=== PATIENT | female | born 2000 | race Caucasian/White ===

== ENCOUNTER 2024-09-24 18:10 | Emergency (ER) | payer SELFPAY ==
[2024-09-24 18:13] VITALS: BP 160/100
--- NOTE | 2024-09-24 18:13 | ED.GENMED ---
ED Provider Triage
-
Patient seen by provider in Triage?: Seen in Triage
Attestation: A medical screening examination has been initiated by a qualified medical provider. Based on the assessment performed at this time, it has been determined that an emergent medical condition may exist and the patient has been informed
that further medical evaluation and possible additional diagnostic testing may be needed.
HPI: 24yoF here with R lower dental pain and foul taste x 3 days. Hx of impacted wisdom teeth. Worried about an infection. Dental insurance starts in October.
GENERAL: Alert , in no apparent distress
EYE: No visual abnormalities.
NECK: Trachea midline
ENT: No visible abnormalities.
LUNGS: No acute respiratory distress
NEUROLOGICAL: Alert and oriented
SKIN: Skin intact. No visible changes.
MUSCULOSKELETAL: Moving extremities normally
PSYCH: Normal and appropriate interaction.
This is a medical evaluation conducted in person to initiate diagnostic evaluation and provide initial therapeutics. Please see further documentation by the treating clinician.
History of Present Illness
General
Chief Complaint: Dental Problem
Source: patient
Exam Limitations: none
Time Seen by Provider: 09/24/24 18:21
History of Present Illness
History of Present Illness:
24yoF with no significant past medical history presenting for evaluation of right lower dental pain x 3 days. Patient has a history of impacted wisdom teeth. She is normally able to manage her pain with as needed ibuprofen. Her pain has been
worsening over the past 3 days. She is taking ibuprofen and aspirin without much relief. She denies any dysphagia or fevers. Patient is scheduled to receive dental insurance next month.
Phy Exam
General Physical Exam
General Presentation: well appearing and no apparent distress
General age: appears stated age
General Skin: warm and dry
General Habitus: normal
General Mental: alert
ENT Exam
ENT Exam: pharynx normal (+Tenderness to R lower wisdom tooth. No periapical abscess. No facial swelling. Normal phonation. Tolerating oral secretions. No elevation of floor of mouth. ) and normocephalic
Pulmonary Exam
Pulmonary Exam: no respiratory distress
Neurological Exam
Neurological Exam: alert
Cristina Coma Scale
Eye Opening: Spontaneous
Verbal Response: Oriented
Motor Response: Obeys Commands
GCS Total Score: 15
Skin Exam
Skin Exam: normal color and warm/dry
Psychiatric Exam
Psychiatric Exam: normal mood/affect
Course
Vital Signs
Initial and Last Documented VS:
Initial Vital Signs
Temp Pulse Resp BP Pulse Ox
98.3 F 102 20 160/100 100
09/24/24 18:13 09/24/24 18:13 09/24/24 18:13 09/24/24 18:13 09/24/24 18:13
Last Documented Vital Signs
Temp Pulse Resp BP Pulse Ox
98.3 F 102 20 160/100 100
09/24/24 18:13 09/24/24 18:13 09/24/24 18:13 09/24/24 18:13 09/24/24 18:13
MDM/Problems Addressed
Differential Diagnosis Includes:
24yoF here with R lower dental pain x 3 days. Hx of impacted wisdom teeth. She is afebrile and well-appearing. There is tenderness to the right lower wisdom tooth on exam. No periapical abscess. No signs of facial cellulitis or Murtaza's angina.
Patient started on a course of clindamycin (PCN allergy). Supportive care discussed. Patient is set to receive dental insurance next month. A list of low-cost dental clinics provided to patient. Stressed importance of outpatient dental f/u. ED
return precautions discussed. She expressed understanding and is agreeable with plan. She was discharged in stable condition.
*Critical Care Note
Total Time (30-74mins, 75-104mins- exclusive of procedures): Not Applicable
ED Attending Note
-
Portions of this chart may have been created with voice recognition software.� Occasional wrong word or��sound alike� substitutions may have occurred due to the inherent limitations of voice recognition software.
Discharge Plan
Departure
Patient Disposition: Home (Routine Discharge)
Date of Disposition: 09/24/24
Time of Disposition: 18:23
Patient with high blood pressure during this ER visit?: Yes
Discharge Problem:
Dentalgia
Instructions: Dental Pain (DC)
Prescriptions:
New
clindamycin HCl 300 mg capsule
300 mg PO Q6H 7 Days Qty: 28 0RF
Referrals:
Imani Saucedo PA-C [Emergency Midlevel Provider] -
Rosemary Watts DDS [Active] -
Activity Restrictions/Additional Instructions:
Take antibiotics as prescribed. Take Tylenol 650mg and ibuprofen 600mg every 6 hours as needed for pain.
Please follow-up with a dentist. Return to the ER with any worsening symptoms or fevers.
Reduced-Fee Dental Clinics
[facility]: [phone] call for appt. No walk ins
[facility]:
[facility]: [phone]
[facility] [phone]
[facility]: . No walk ins
[facility]: [phone]
[facility]: [phone]
[facility]: 1-
[facility]: [phone]
[facility]: [phone]
[facility] Sliding scale, Free for uninsured
[facility]: [phone]
[facility] ex [phone] [facility] [place] [address]
[facility]:
[facility]:
Interventions
Interventions:
*Risk Screen - Suicide Last Done: 09/24/24 18:13
*General Assessment Last Done: 09/24/24 18:28
*Neglect/Abuse Screening Last Done: 09/24/24 18:13
ED- Fall Risk Assessment Last Done: 09/24/24 18:28
*ED COVID-19 Vaccine History Last Done: 09/24/24 18:28
*Nursing Disposition Last Done: 09/24/24 18:28
Discharge Date and Time
Discharge Date/Time: 09/24/24 18:34
Print Language: [place]
== END 2024-09-24 18:34 | disposition home or self-care (01) ==
LOC: EMR 18:10
PROVIDERS: EMERGENCY PHYSICIAN Emergency Medicine
DX: K08.89 Other specified disorders of teeth and supporting structures (principal); R03.0 Elevated blood-pressure reading, without diagnosis of hypertension
CPT/HCPCS: 99283